=== PATIENT | female | born 1940 | race Caucasian/White ===

== ENCOUNTER 2016-05-07 17:38 | Observation (INO) | payer OTHER ==
[~2016-05-07] VITALS: Ht 165.1 cm; Wt 74.0 kg
[~2016-05-07 17:38] MED LIST: FEMARA2.5 MG PO; LIPITOR40 MG PO; METFORMIN HCL500 M2
[2016-05-07 18:22] LABS: HEMATOCRIT 41.4 % (36.0-46.0); MCH 28.9 PG (29.0-34.0); MCHC 34.1 G/DL (30.0-36.0); MCV 84.8 FL (83-99); MEAN PLAT.VOLUME 10.2 uM^3 (9.5-12.4); PLATELET COUNT 434 K/uL (156-360); RBC DIS.WIDTH-CV 13.2 % (11.8-14.6); RBC DIS.WIDTH-SD 40.6 % (39-53); RED BLOOD COUNT 4.88 M/uL (3.80-5.20); WHITE BLOOD COUNT 11.4 K/uL (4.1-10.2)
[2016-05-07] MEDS ORDERED: JANUVIA25 M1 PO (18:24)
[2016-05-07] MEDS ORDERED: FENOFIBRATE145 M1 PO (18:25)
[2016-05-07 18:59] LABS: ANION GAP 8 MEQ/L (2-14); CHLORIDE 97 MEQ/L (99-109); SAMPLE HEMOLYSIS CHECK 0; SAMPLE ICTERIC CHECK 0; SAMPLE LIPEMIA CHECK 0; SODIUM 133 MEQ/L (136-147)
[2016-05-07 19:04] LABS: GFR ESTIMATE (CALCULATED) > 59 mL/min/; GLUCOSE 194 mg/dL (70-99); UREA NITROGEN (BUN) 11 mg/dL (9-23)
[2016-05-07 19:07] LABS: TROP-I INTERPRETATION NEGATIVE; TROPONIN-I < 0.01 ng/mL (0.0-0.30)
[2016-05-07 21:00] LABS: BASOPHIL COUNT 0.1 K/uL (0-0.1); EOSINOPHIL (%) 0.7 % (0-5); EOSINOPHIL COUNT 0.1 K/uL (0-0.3); IMMATURE GRANULOCYTE (%) 0.4 % (0.0-0.7); IMMATURE GRANULOCYTE COUNT 0.4 K/uL; LYMPHOCYTE COUNT 2.3 K/uL (1.0-2.8); MONOCYTE (%) 9.8 % (3-12); MONOCYTE COUNT 1.1 K/uL (0-0.8); NEUTROPHIL COUNT 7.5 K/uL (1.8-6.4)
[2016-05-07] MEDS ORDERED: LISINOPRIL20 MG PO (23:12)
[2016-05-07] MEDS ORDERED: EYE DROPS ALLER15 ML BOTH EYES (23:13)
[2016-05-07 23:40] LABS: APPEARANCE CLEAR/COLORLESS
[2016-05-07 23:53] LABS: RED CELL AREA COUNTED 18; RED CELL COUNT 2 /MM^3 (0-1); RED CELL DILUTION 1; WBC AREA COUNTED 18; WBC DILUTION 1; WHITE CELL COUNT 0 /MM^3 (0-5); WHITE CELL RAW COUNT 0
[2016-05-07 23:54] LABS: CSF EOSINOPHILS ND % (0-25); MONONUCLEAR WBC'S ND % (50-90); POLYNUCLEAR WBC'S ND % (0-3); SPINAL FLD COMMENT WBC NOT SEEN
[2016-05-08 00:12] VITALS: BP 188/82
[2016-05-08 07:47] VITALS: BP 159/71
[2016-05-08 08:31] LABS: POINT-OF-CARE METER ID UU14162513
[2016-05-08 08:57] LABS: EOSINOPHIL (%) 0.6 % (0-5); EOSINOPHIL COUNT 0.1 K/uL (0-0.3); HEMATOCRIT 37.8 % (36.0-46.0); IMMATURE GRANULOCYTE (%) 0.2 % (0.0-0.7); MCH 29.1 PG (29.0-34.0); MCHC 34.1 G/DL (30.0-36.0); MCV 85.1 FL (83-99); MEAN PLAT.VOLUME 10.3 uM^3 (9.5-12.4); MONOCYTE (%) 8.2 % (3-12); MONOCYTE COUNT 0.9 K/uL (0-0.8); NEUTROPHIL (%) 71.8 % (45-76); NEUTROPHIL COUNT 7.6 K/uL (1.8-6.4); PLATELET COUNT 335 K/uL (156-360); RBC DIS.WIDTH-CV 13.4 % (11.8-14.6); RBC DIS.WIDTH-SD 41.5 % (39-53); RED BLOOD COUNT 4.44 M/uL (3.80-5.20); WHITE BLOOD COUNT 10.6 K/uL (4.1-10.2)
[2016-05-08 09:22] LABS: ANION GAP 8 MEQ/L (2-14); CHLORIDE 96 MEQ/L (99-109); POTASSIUM 3.8 MEQ/L (3.7-5.4); SAMPLE HEMOLYSIS CHECK 0; SAMPLE ICTERIC CHECK 0; SAMPLE LIPEMIA CHECK 0; SODIUM 131 MEQ/L (136-147)
[2016-05-08 09:28] LABS: GFR ESTIMATE (CALCULATED) > 59 mL/min/; GLUCOSE 141 mg/dL (70-99); UREA NITROGEN (BUN) 10 mg/dL (9-23)
[2016-05-08 11:37] LABS: ERTH.SED.RATE 27 MM/HR (0-30)
[2016-05-08 12:09] VITALS: BP 143/68
[2016-05-08 12:42] LABS: POINT-OF-CARE METER ID UU14162513
[2016-05-08] MEDS ORDERED: TYLENOL REGULA325 MG PO (14:53)
[2016-05-08 16:31] VITALS: BP 140/65
== END 2016-05-08 18:52 | disposition home or self-care (01) ==
LOC: EME 17:38 → EDOF 23:11 → 5WEST 23:11 → EDOF 23:11 → 5WEST 23:49
PROVIDERS: Emergency Medicine; Student in an Organized Health Care Education/Training Program
PROC: 009U3ZX Drainage of Spinal Canal, Percutaneous Approach, Diagnostic (ICD-10-PCS; principal; 2016-05-07)
DX: G43.909 Migraine, unspecified, not intractable, without status migrainosus (principal); M54.2 Cervicalgia; I10 Essential (primary) hypertension; T46.5X6A Underdosing of other antihypertensive drugs, initial encounter; Z91.138 Patient's unintentional underdosing of medication regimen for other reason; E11.9 Type 2 diabetes mellitus without complications; G20 Parkinson's disease; Z85.3 Personal history of malignant neoplasm of breast; Z79.84 Long term (current) use of oral hypoglycemic drugs; Z88.0 Allergy status to penicillin; Z88.2 Allergy status to sulfonamides; Z88.5 Allergy status to narcotic agent; Z82.49 Family history of ischemic heart disease and other diseases of the circulatory system; Z82.0 Family history of epilepsy and other diseases of the nervous system
CPT/HCPCS: 70450; 71020; 80048; 82945; 82948; 83605; 84157; 84484; 85025; 85027; 85651; 87070; 87205; 89051; 93005; 99281; 99285; G0378; J1170; J1644; J2765

== ENCOUNTER 2017-03-15 21:08 | Emergency (ER) | payer OTHER ==
[~2017-03-15] VITALS: Ht 162.6 cm; Wt 76.2 kg
[~2017-03-15 21:08] MED LIST changes: +EYE DROPS ALLER15 ML BOTH EYES; +FENOFIBRATE145 M1 PO; +JANUVIA25 M1 PO; +LISINOPRIL20 MG PO; +TYLENOL REGULA325 MG PO
[2017-03-15] MEDS ORDERED: TOPROL XL25 MG PO (21:57)
[2017-03-15] MEDS ORDERED: HYDROCHLOROTHIA25 MG PO (21:58)
[2017-03-15] MEDS ORDERED: TRICOR145 MG PO (21:58)
[2017-03-15 22:41] LABS: EOSINOPHIL (%) 0.3 % (0-5); IMMATURE GRANULOCYTE (%) 0.4 % (0.0-0.7); INSTRUMENT ABS NEUTROPHIL CT 8.3 K/uL; LYMPHOCYTE COUNT 1.2 K/uL (1.0-2.8); MCH 28.3 PG (29.0-34.0); MCHC 33.8 G/DL (30.0-36.0); MCV 83.7 FL (83-99); MEAN PLAT.VOLUME 9.6 uM^3 (9.5-12.4); MONOCYTE (%) 13.3 % (3-12); MONOCYTE COUNT 1.5 K/uL (0-0.8); NEUTROPHIL (%) 74.8 % (45-76); NEUTROPHIL COUNT 8.3 K/uL (1.8-6.4); PLATELET COUNT 456 K/uL (156-360); RBC DIS.WIDTH-CV 12.7 % (11.8-14.6); RBC DIS.WIDTH-SD 38.8 % (39-53); RED BLOOD COUNT 4.42 M/uL (3.80-5.20); WHITE BLOOD COUNT 11.1 K/uL (4.1-10.2)
[2017-03-15 22:43] LABS: ADD MIUA? YES; BILIRUBIN NEGATIVE; BLOOD SMALL; COLOR YELLOW ((YELLOW)); GLUCOSE (STRIP) 150; KETONES NEGATIVE; LEUKOCYTES LARGE; NITRITE NEGATIVE; PROTEIN (STRIP) 30; SPECIFIC GRAVITY 1.015 (1.000-1.030)
[2017-03-15 22:48] LABS: BACTERIA 1+ /HPF; EPITHELIAL CELLS RARE /HPF; MUCUS NONE SEEN /LPF; UCUL ADDED? YES; WHITE BLOOD CELLS 20-30 /HPF (0-5)
[2017-03-15 22:55] LABS: CHLORIDE 96 mEq/L (99-109); SODIUM 130 mEq/L (136-147)
[2017-03-15 22:57] LABS: GLUCOSE 243 mg/dL (70-99)
[2017-03-15 22:58] LABS: ANION GAP 10 MEQ/L (2-14)
[2017-03-15 22:59] LABS: TOTAL BILIRUBIN 0.7 mg/dL (0.0-1.0)
[2017-03-15 23:00] LABS: ALKALINE PHOSPHATASE 87 IU/L (3-129)
[2017-03-15 23:01] LABS: GFR ESTIMATE (CALCULATED) > 59 mL/min/
[2017-03-15 23:02] LABS: UREA NITROGEN (BUN) 11 mg/dL (9-23)
[2017-03-16] MEDS ORDERED: MOTRIN600 MG PO (00:54)
[2017-03-16] MEDS ORDERED: TYLENOL ARTHRI650 MG PO (00:54)
[2017-03-16] MEDS ORDERED: MACROBID100 MG PO (00:58)
[2017-03-16 01:35] VITALS: BP 168/68
== END 2017-03-16 01:36 | disposition home or self-care (01) ==
LOC: EME 21:08
PROVIDERS: Emergency Medicine
DX: N39.0 Urinary tract infection, site not specified (principal); G89.29 Other chronic pain; M54.2 Cervicalgia; M54.5 Low back pain; M25.562 Pain in left knee; M25.561 Pain in right knee; G20 Parkinson's disease; E11.9 Type 2 diabetes mellitus without complications; Z79.84 Long term (current) use of oral hypoglycemic drugs; E78.5 Hyperlipidemia, unspecified; I10 Essential (primary) hypertension; Z85.3 Personal history of malignant neoplasm of breast; Z91.040 Latex allergy status; Z88.5 Allergy status to narcotic agent; Z88.2 Allergy status to sulfonamides; Z88.0 Allergy status to penicillin; Z88.1 Allergy status to other antibiotic agents
CPT/HCPCS: 80053; 81003; 85025; 87086; 99281; 99285; J7040